=== PATIENT | male | born 1985 | race Caucasian/White ===

== ENCOUNTER 2019-11-26 15:19 | Emergency (ER) | payer OTHER ==
[~2019-11-26] VITALS: Ht 185.4 cm; Wt 88.5 kg
== END 2019-11-26 16:59 | disposition home or self-care (01) ==
LOC: ED 15:19
DX: S06.0X0A Concussion without loss of consciousness, initial encounter (principal); Z87.891 Personal history of nicotine dependence; W22.8XXA Striking against or struck by other objects, initial encounter
CPT/HCPCS: 70450; 99283-25

== ENCOUNTER 2020-06-15 10:11 | Emergency (ER) | payer OTHER ==
[~2020-06-15] VITALS: Ht 188 cm; Wt 86.2 kg
--- NOTE | 2020-06-16 18:12 | EKG ---
[facility] [address] [facility] [place], [place] [address] Signed Normal sinus rhythm Normal ECG No previous ECGs available Confirmed by CRISTAL HERRING DO ([id number]) on 06/16/2020 6:11:56 PM Electronically Signed By: CRISTAL HERRING DO 06/16/20 181 PATIENT NAME: MAXINE COVARRUBIAS DEJUAN Electrocardiogram DATE OF : 85 PHYSICIAN: CRISATL HERRING DO REPORT #: [id number] REPORT IS CONFIDENTIAL AND NOT TO BE RELEASED WITHOUT AUTHORIZATION
== END 2020-06-15 12:11 | disposition home or self-care (01) ==
LOC: ED 10:11
DX: R10.12 Left upper quadrant pain (principal)
CPT/HCPCS: 71045; 80053; 81001; 83735; 84484; 85025; 93005; 93010; 96374; 99284-25; J1885

== ENCOUNTER 2022-07-30 10:31 | Emergency (ER) | payer OTHER ==
[~2022-07-30] VITALS: Ht 188 cm; Wt 88.3 kg
== END 2022-07-30 11:11 | disposition home or self-care (01) ==
LOC: ED 10:31
DX: S06.0X0A Concussion without loss of consciousness, initial encounter (principal); S29.012A Strain of muscle and tendon of back wall of thorax, initial encounter; W22.8XXA Striking against or struck by other objects, initial encounter
CPT/HCPCS: 99283; A9270

== ENCOUNTER 2022-10-11 13:33 | Emergency (ER) | payer OTHER ==
[~2022-10-11] VITALS: Ht 188 cm; Wt 88.3 kg
--- NOTE | 2022-10-11 21:42 | EKG ---
[facility] [address] [facility] [place] [address] Signed Normal sinus rhythm Normal ECG When compared with ECG of 15-JUN-2020 10:14:53, No significant change was found Confirmed by Ann Berg MD () on 10/11/2022 9:42:16 PM Electronically Signed By: ANN BERG MD [id number]/11/[id number] PATIENT NAME: SATISHMAXINE Electrocardiogram DATE OF : 85 PHYSICIAN: ANN BERG MD REPORT #: [id number] REPORT IS CONFIDENTIAL AND NOT TO BE RELEASED WITHOUT AUTHORIZATION
== END 2022-10-11 15:03 | disposition home or self-care (01) ==
LOC: ED 13:33
DX: R07.2 Precordial pain (principal)
CPT/HCPCS: 36415; 71045; 80053; 83735; 84484; 85025; 93005; 93010; 99285-25